=== PATIENT | male | born 1935 | race Caucasian/White ===

== ENCOUNTER 2024-03-15 15:55 | Emergency (ER) | payer MEDICARE, OTHER, SELFPAY ==
[2024-03-15] VITALS (11 sets, daily range): BP systolic 136–183; BP diastolic 76–91; PULSE 51–67; RESP 12–22; TEMP 36.3–36.7; O2SAT 94–96
--- NOTE | 2024-03-15 16:15 | DI.RAD_ITS ---
Exam(s) XR SHOULDER LT COMPLETE 2+V XR RIBS LT PA CHEST 3V CLINICAL HISTORY fall L rib pain. COMPARISON: CR XR SHOULDER LT COMPLETE 2+V from 03/15/2024 TECHNIQUE:: PA and lateral views of the chest and four views of the left ribs were performed. FINDINGS: LUNGS: Severe underlying emphysematous changes, greater at the lung apices where there is also scarri ng. Postsurgical changes in the left upper lobe with suture material. No pneumothorax. No effusion . HEART: Normal. MEDIASTINUM: Normal. BONES: No displaced rib fracture is seen. The lower ribs are partially obscured by bowel gas and sto ol. No bony destructive lesion is seen. No evidence of shoulder fracture or dislocation. There are degenerative changes at the AC joint and glenohumeral joint. Soft tissues: Unremarkable. IMPRESSION: 1. Unremarkable radiographic appearance of the left ribs. No evidence of shoulder fracture. 2. No acute pulmonary findings. Bilateral emphysematous changes and pulmonary scarring.
--- NOTE | 2024-03-15 16:15 | DI.CT_ITS ---
Exam(s) CT HEAD WO EXAM: CT HEAD WO CLINICAL HISTORY: fall on eliquis. TECHNIQUE: Imaging Protocol: Axial computed tomography images with coronal and sagittal reformatted images were created and reviewed COMPARISON: No exams were available for comparison FINDINGS: Ventricles and Extra axial spaces: Normal in size and morphology for the patient's age. Hemorrhage: None. Cerebral parenchyma: No evidence of acute infarct or mass. Midline shift: None. Brainstem/Cerebellum: Normal. Calvarium: Normal. Visualized Paranasal sinuses:Clear. Mastoids: Clear. Soft Tissues: Unremarkable. ORBITS: Unremarkable. PITUITARY: Not enlarged. IMPRESSION: No acute intracranial process. RADIATION DOSE DELIVERED: Total DLP DATA REPOSITORY: All CT scans at this facility are submitted to the National Radiology Data Registry (NRDR) Dose Index Registry (DIR) with the [employer] (ACR). RADIATION OPTIMIZATION: All CT scans at this facility use at least one of these dose optimization te chniques: automated exposure control; mA and/or kV adjustment per patient size (includes targeted exa ms where dose is matched to clinical indication); or iterative reconstruction.
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
== END 2024-03-15 18:03 | disposition home or self-care (01) ==
LOC: ER 18:51
PROVIDERS: Emergency Provider Physician Assistant
DX: M25.512 Pain in left shoulder (principal); S20.211A Contusion of right front wall of thorax, initial encounter; W00.0XXA Fall on same level due to ice and snow, initial encounter; Y93.01 Activity, walking, marching and hiking
CPT/HCPCS: 71101; 99284; 70450; 73030